=== PATIENT | male | born 1950 | race Caucasian/White ===

== ENCOUNTER 2016-09-02 07:37 | Outpatient (CLI) | payer OTHER ==
--- NOTE | 2016-09-02 08:53 | DIAGNOSTIC IMAGING REPORT ---
PROCEDURE: US ABDOMEN ULTRASOUND-LIMITED INDICATION: FORMER SMOKER TECHNIQUE: Ortiz scale and color Doppler sonographic images of the abdomen were obtained. COMPARISON: None. FINDINGS: Mild to moderate atherosclerosis of the aorta. Aortic diameter: Proximal 2.4 cm, mid 2.5 cm and distal 2.3 cm. Right iliac artery measures 1.7 cm and left iliac artery 1.5 cm. Vessels are patent. IMPRESSION: 1. Mild moderate atherosclerosis but no abdominal aortic aneurysm
== END 2016-09-02 23:00 ==
LOC: US SRH 07:37
DX: I70.8 Atherosclerosis of other arteries (principal); Z87.891 Personal history of nicotine dependence